=== PATIENT | male | born 1960 | race Caucasian/White ===

== ENCOUNTER 2017-05-31 10:13 | Emergency (ER) | payer SELFPAY ==
[~2017-05-31] VITALS: Ht 185.4 cm; Wt 111.1 kg
[2017-05-31] MEDS ORDERED: TRAMADOL HCL 50 MG TABLET PO ONE (11:15)
[2017-05-31] MEDS ORDERED: TRAMADOL HCL 50 MG TABLET ONE (11:35)
[2017-05-31 12:17] VITALS: BP 121/76
--- NOTE | 2017-05-31 12:20 | NUR ---
posterior short splint applied to R ankle per Dr. Miranda. +CMS. crutches given and education on use provided. pt verbalized understanding Patient discharged to home in stable conditon. Written and verbal after care instructions given along with RX and work excuse. instructed to not drive Patient verbalizes understanding of instructions.
== END 2017-05-31 12:21 | disposition home or self-care (01) ==
LOC: ER 10:13
DX: S93.401A Sprain of unspecified ligament of right ankle, initial encounter (principal); I10 Essential (primary) hypertension; X50.9XXA Other and unspecified overexertion or strenuous movements or postures, initial encounter; Y93.89 Activity, other specified; Y92.89 Other specified places as the place of occurrence of the external cause; Y99.8 Other external cause status
CPT/HCPCS: 73610; A4663